=== PATIENT | male | born 1980 | race Caucasian/White ===

== ENCOUNTER 2018-02-03 01:18 | Emergency (ER) | payer SELFPAY ==
[~2018-02-03] VITALS: Ht 182.9 cm; Wt 75.0 kg
[~2018-02-03 01:18] MED LIST: KLON2TAB PO; LAMI200T PO; METH10TA PO; [UNRECOGNIZED DRUG - CODE] PO
[2018-02-03 01:20] VITALS: BP 145/73; PULSE 114; RESP 20; TEMP 99.7; O2SAT 97
[2018-02-03] MEDS ORDERED: DALBAVANCIN INJ 1,500 MG in DEXTROSE 5% IN WATE 500 ML INJ 500 ML IV STA ×2 (01:42)
[2018-02-03] MEDS ORDERED: DALBAVANCIN INJ 1,125 MG in DEXTROSE 5% IN WATER INJ 250 ML IV STA ×2 (01:42)
[2018-02-03] MEDS ORDERED: MISCELLANEOUS PHARMACY INFORMATION XX ONE (01:45)
[2018-02-03] MEDS ORDERED: ASP: Only reason for admit - IV antibiotics OTHER ONE (01:45)
[2018-02-03] MEDS ORDERED: ASP: Does not meet inpatient admission criteria OTHER ONE (01:45)
[2018-02-03] MEDS ORDERED: ASP: Location of Dalbavancin administration OTHER ONE (01:45)
[2018-02-03] MEDS ORDERED: ASP: No known hypersensitivity to Vanco, Telavancin, Dalbavancin OTHER ONE (01:45)
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
== END 2018-02-03 04:30 | disposition left against medical advice (07) ==
LOC: NEPD 01:18
DX: L02.414 Cutaneous abscess of left upper limb (principal); Z53.21 Procedure and treatment not carried out due to patient leaving prior to being seen by health care provider; L03.114 Cellulitis of left upper limb; R00.0 Tachycardia, unspecified; R45.1 Restlessness and agitation
CPT/HCPCS: 10060